=== PATIENT | female | born 1980 | race Caucasian/White ===

== ENCOUNTER 2022-09-18 23:31 | Inpatient (IN) | payer OTHER ==
[2022-09-18 23:39] LABS: Glucose,Whole Blood 349 mg/dL (70-110)
[2022-09-18] MEDS ORDERED: IBUPROFEN IV 800 MG in SODIUM CHLORIDE 0.9% 250 ML IV ONE (23:46)
[2022-09-18] MEDS ORDERED: SODIUM CHLORIDE 0.9% 1,000 ML IV STA ×2 (23:46)
[2022-09-18] MEDS ORDERED: ACETAMINOPHEN IV (For NPO) 1,000 MG in EMPTY BAG 1 BAG IVPB STA (23:46)
--- NOTE | 2022-09-18 23:47 | ED ---
Fever HPI - General Chief Complaint: Recheck/Abnormal Lab/Rx Stated Complaint: Hyperglycemia Time Seen by Provider: 09/18/22 23:35 Source: patient, RN notes reviewed, old records reviewed Mode of arrival: EMS Limitations: no limitations - History of Present Illness Initial Comments: This is a 41-year-old female to the emergency department for evaluation of overall not feeling well. Patient is sick with fever not feeling well decreased activity level. Decreased urine output. Severe barely elevated blood sugar patient believes she has fever. Patient does have history of diabetes MD Complaint: fever, malaise, weakness, other (Hypoglycemia) -: unknown Context: multiple patients with similar symptoms Associated Symptoms: chills, rigors, myalgias, abdominal pain, nausea, vomiting Treatments Prior to Arrival: none - Related Data Previous Rx's Medication Instructions Recorded Ciprofloxacin HCl [Cipro] 500 mg PO BID 10 Days #20 tab 09/22/22 Atorvastatin [Lipitor] 40 mg PO HS #30 tab 09/23/22 INSULIN ASPART (NovoLOG) [NovoLOG 4 unit SQ AC-TID #1 each 09/23/22 (formulary)] Insulin Detemir (Levemir) [Levemir] 12 unit SQ BID@0700,2100 #1 each 09/23/22 lisinopriL [Zestril] 2.5 mg PO DAILY #30 tab 09/23/22 metFORMIN HCL [Glucophage] 500 mg PO BID #60 tab 09/23/22 Allergies Allergy/AdvReac Type Severity Reaction Status Date / Time No Known Allergies Allergy Verified 09/19/22 11:00 Review of Systems ROS Statement: Those systems with pertinent positive or pertinent negative responses have been documented in the HPI. ROS Other: All systems not noted in ROS Statement are negative. Past Medical History Past Medical History: Diabetes Mellitus Additional Past Medical History / Comment(s): Type 2 History of Any Multi-Drug Resistant Organisms: None Reported Past Surgical History: No Surgical Hx Reported Past Psychological History: No Psychological Hx Reported Smoking Status: Current every day smoker Past Alcohol Use History: Occasional Past Drug Use History: None Reported General Exam Limitations: no limitations General appearance: alert, in no apparent distress, anxious, in distress Head exam: Present: atraumatic, normocephalic, normal inspection Eye exam: Present: normal appearance, PERRL, EOMI. Absent: scleral icterus, conjunctival injection, periorbital swelling ENT exam: Present: normal exam, mucous membranes moist Neck exam: Present: normal inspection. Absent: tenderness, meningismus, lymphadenopathy Respiratory exam: Present: normal lung sounds bilaterally. Absent: respiratory distress, wheezes, rales, rhonchi, stridor Cardiovascular Exam: Present: normal rhythm, tachycardia, normal heart sounds. Absent: systolic murmur, diastolic murmur, rubs, gallop, clicks GI/Abdominal exam: Present: soft, normal bowel sounds. Absent: distended, tenderness, guarding, rebound, rigid Extremities exam: Present: normal inspection, full ROM, normal capillary refill. Absent: tenderness, pedal edema, joint swelling, calf tenderness Back exam: Present: normal inspection Neurological exam: Present: alert, oriented X3, CN II-XII intact Psychiatric exam: Present: normal affect, normal mood Skin exam: Present: warm, dry, intact, normal color. Absent: rash Course Vital Signs 09/18/22 09/19/22 09/19/22 23:34 00:42 02:00 Temperature 99.8 F H 97.8 F Pulse Rate 103 H 103 H 91 Respiratory 16 18 16 Rate Blood Pressure 136/112 118/61 118/61 O2 Sat by Pulse 96 98 96 Oximetry 09/19/22 03:07 Temperature 97.9 F Pulse Rate 94 Respiratory 16 Rate Blood Pressure 118/61 O2 Sat by Pulse 96 Oximetry - Reevaluation(s) Reevaluation #1: Medical records reviewed Reevaluation #2: Patient symptoms are improved Reevaluation #3: Patient informed results questions answered Reevaluation #4: 09/19/22 01:04 Was pt. sent in by a medical professional or institution? @ -no Did you speak to anyone other than the patient for history? @ -no Did you review nursing and triage notes? @ -agree Were old charts reviewed? @ -yes Differential Diagnosis? @ -prior EKG interpreted by me (3pts min.)? @ -yes X-rays interpreted by me (1pt min.)? @ -yes CT interpreted by me (1pt min.)? @ -no U/S interpreted by me (1pt. min.)? @ -no What testing was considered but not performed? (CT, X-rays, U/S, labs)? Why? @ -no What meds were considered but not given? Why? @ -no Did you discuss the management of the patient with other professionals? @ -no Did you reconcile home meds? @ -no Was smoking cessation discussed for >3mins.? @ -no Was critical care preformed (if so, how long)? @ -no Were there social determinants of health that impacted care today? How? (Homelessness, low income, unemployed, alcoholism, drug addiction, transportation, low edu. Level, literacy, decrease access to med. care, half-way, rehab)? @ -no Was there de-escalation of care discussed even if they declined? (Discuss DNR or withdrawal of care, Hospice)? @ -no What co-morbidities impacted this encounter? (DM, HTN, Smoking, COPD, CAD, Cancer, CVA, Hep., AIDS, mental health diagnosis, sleep apnea, morbid obesity)? @ -none Was patient admitted / discharged? @ -89 female will be admitted for antibiotics breathing treatments regarding shortness of breath and difficulty breathing. Admitted Date Undiagnosed new problem with uncertain prognosis? @ -no Drug Therapy requiring intensive monitoring for toxicity (Heparin, Nitro, Insulin, Cardizem)? @ -no Were any procedures done? @ -no Diagnosis/symptom? @ -Fever UTI sepsis Acute, or Chronic, or Acute on Chronic? @ -acute Uncomplicated (without systemic symptoms) or Complicated (systemic symptoms)? @ -complicated Side effects of treatment? @ -no Exacerbation, Progression, or Severe Exacerbation] @ -no Poses a threat to life or bodily function? @ -yes with sepsis Reevaluation #5: 09/19/22 01:04 Differential Fever: Pneumonia, viral URI, endocarditis, myocarditis, pericarditis, otitis, sinusitis, peritonsillar Abscess, retropharyngeal Abscess, epiglottitis, peritonitis, appendicitis, Jovana cystitis, diverticulitis, hepatitis, colitis, UTI, PID, TOA, pyelonephritis, prostatitis, epididymitis, meningitis, encephalitis, pulmonary embolism, CVA, thyroid storm, pancreatitis, adrenal crisis, cavernous sinus thrombosis, this is not meant to be an all-inclusive list. - Consultations Consultation #1: Spoke with admitting physician surgery to admit this patient Procedures - Sepsis Sepsis Focused Exam #1 Time Sepsis Criteria Met: 23:55 Sepsis Focused Exam Date: 09/19/22 Sepsis Focused Exam Time: 06:00 Sepsis Focused Exam Complete: Yes Vital Signs & RN Notes Reviewed: Yes Capillary Refill: < 2 Seconds: Fingers, Toes Peripheral Pulses: Normal: Radial (R), Radial (L), Posterior Tibialis (R), Posterior Tibialis (L), Dorsalis Pedis (R), Dorsalis Pedis (L) Skin Color: Normal for Patient Respiratory Exam: normal lung sounds Cardiovascular Exam: regular rate Medical Decision Making - Lab Data Result diagrams: 09/23/22 06:25 09/23/22 06:25 Lab Results 09/18/22 09/18/22 09/18/22 Range/Units 23:37 23:40 23:40 WBC 16.6 H (3.8-10.6) k/uL RBC 4.99 (3.80-5.40) m/uL Hgb 14.4 (11.4-16.0) gm/dL Hct 44.1 (34.0-46.0) % MCV 88.4 (80.0-100.0) fL MCH 28.9 (25.0-35.0) pg MCHC 32.7 (31.0-37.0) g/dL RDW 12.8 (11.5-15.5) % Plt Count 292 (150-450) k/uL MPV 7.9 Neutrophils % 78 % Lymphocytes % 14 % Monocytes % 6 % Eosinophils % 1 % Basophils % 0 % Neutrophils # 12.9 H (1.3-7.7) k/uL Lymphocytes # 2.4 (1.0-4.8) k/uL Monocytes # 1.0 (0-1.0) k/uL Eosinophils # 0.2 (0-0.7) k/uL Basophils # 0.1 (0-0.2) k/uL PT 9.7 (9.0-12.0) sec INR 0.9 (<1.2) APTT 22.8 (22.0-30.0) sec Sodium (137-145) mmol/L Potassium (3.5-5.1) mmol/L Chloride (98-107) mmol/L Carbon Dioxide (22-30) mmol/L Anion Gap mmol/L BUN (7-17) mg/dL Creatinine (0.52-1.04) mg/dL Est GFR (CKD-EPI)AfAm (>60 ml/min/1.73 sqM) Est GFR (CKD-EPI)NonAf (>60 ml/min/1.73 sqM) Glucose (74-99) mg/dL POC Glucose (mg/dL) 349 H (70-110) mg/dL POC Glu [employer] Specialist ID Dean Malin Plasma Lactic Acid Dustin (0.7-2.0) mmol/L Calcium (8.4-10.2) mg/dL Phosphorus (2.5-4.5) mg/dL Magnesium (1.6-2.3) mg/dL Total Bilirubin (0.2-1.3) mg/dL AST (14-36) U/L ALT (4-34) U/L Alkaline Phosphatase (38-126) U/L Ammonia (<30) umol/L Troponin I (0.000-0.034) ng/mL NT-Pro-B Natriuret Pep pg/mL Total Protein (6.3-8.2) g/dL Albumin (3.5-5.0) g/dL Lipase (23-300) U/L TSH (0.465-4.680) mIU/L Serum Alcohol mg/dL Acetone, Qual (Negative) Coronavirus (PCR) (Not Detectd) 09/18/22 09/18/22 09/18/22 Range/Units 23:40 23:40 23:40 WBC (3.8-10.6) k/uL RBC (3.80-5.40) m/uL Hgb (11.4-16.0) gm/dL Hct (34.0-46.0) % MCV (80.0-100.0) fL MCH (25.0-35.0) pg MCHC (31.0-37.0) g/dL RDW (11.5-15.5) % Plt Count (150-450) k/uL MPV Neutrophils % % Lymphocytes % % Monocytes % % Eosinophils % % Basophils % % Neutrophils # (1.3-7.7) k/uL Lymphocytes # (1.0-4.8) k/uL Monocytes # (0-1.0) k/uL Eosinophils # (0-0.7) k/uL Basophils # (0-0.2) k/uL PT (9.0-12.0) sec INR (<1.2) APTT (22.0-30.0) sec Sodium 127 L (137-145) mmol/L Potassium 3.8 (3.5-5.1) mmol/L Chloride 96 L (98-107) mmol/L Carbon Dioxide 21 L (22-30) mmol/L Anion Gap 10 mmol/L BUN 7 (7-17) mg/dL Creatinine 0.38 L (0.52-1.04) mg/dL Est GFR (CKD-EPI)AfAm >90 (>60 ml/min/1.73 sqM) Est GFR (CKD-EPI)NonAf >90 (>60 ml/min/1.73 sqM) Glucose 355 H (74-99) mg/dL POC Glucose (mg/dL) (70-110) mg/dL POC Glu [employer] Specialist ID Plasma Lactic Acid Dustin 1.5 (0.7-2.0) mmol/L Calcium 8.6 (8.4-10.2) mg/dL Phosphorus 3.9 (2.5-4.5) mg/dL Magnesium 1.4 L (1.6-2.3) mg/dL Total Bilirubin 1.2 (0.2-1.3) mg/dL AST 28 (14-36) U/L ALT 29 (4-34) U/L Alkaline Phosphatase 87 (38-126) U/L Ammonia 10 (<30) umol/L Troponin I <0.012 (0.000-0.034) ng/mL NT-Pro-B Natriuret Pep pg/mL Total Protein 7.0 (6.3-8.2) g/dL Albumin 3.6 (3.5-5.0) g/dL Lipase 70 (23-300) U/L TSH 1.420 (0.465-4.680) mIU/L Serum Alcohol <10 mg/dL Acetone, Qual Negative (Negative) Coronavirus (PCR) (Not Detectd) 09/18/22 09/19/22 Range/Units 23:40 00:15 WBC (3.8-10.6) k/uL RBC (3.80-5.40) m/uL Hgb (11.4-16.0) gm/dL Hct (34.0-46.0) % MCV (80.0-100.0) fL MCH (25.0-35.0) pg MCHC (31.0-37.0) g/dL RDW (11.5-15.5) % Plt Count (150-450) k/uL MPV Neutrophils % % Lymphocytes % % Monocytes % % Eosinophils % % Basophils % % Neutrophils # (1.3-7.7) k/uL Lymphocytes # (1.0-4.8) k/uL Monocytes # (0-1.0) k/uL Eosinophils # (0-0.7) k/uL Basophils # (0-0.2) k/uL PT (9.0-12.0) sec INR (<1.2) APTT (22.0-30.0) sec Sodium (137-145) mmol/L Potassium (3.5-5.1) mmol/L Chloride (98-107) mmol/L Carbon Dioxide (22-30) mmol/L Anion Gap mmol/L BUN (7-17) mg/dL Creatinine (0.52-1.04) mg/dL Est GFR (CKD-EPI)AfAm (>60 ml/min/1.73 sqM) Est GFR (CKD-EPI)NonAf (>60 ml/min/1.73 sqM) Glucose (74-99) mg/dL POC Glucose (mg/dL) (70-110) mg/dL POC Glu [employer] Specialist ID Plasma Lactic Acid Dustin (0.7-2.0) mmol/L Calcium (8.4-10.2) mg/dL Phosphorus (2.5-4.5) mg/dL Magnesium (1.6-2.3) mg/dL Total Bilirubin (0.2-1.3) mg/dL AST (14-36) U/L ALT (4-34) U/L Alkaline Phosphatase (38-126) U/L Ammonia (<30) umol/L Troponin I (0.000-0.034) ng/mL NT-Pro-B Natriuret Pep 46 pg/mL Total Protein (6.3-8.2) g/dL Albumin (3.5-5.0) g/dL Lipase (23-300) U/L TSH (0.465-4.680) mIU/L Serum Alcohol mg/dL Acetone, Qual (Negative) Coronavirus (PCR) Not Detected (Not Detectd) - EKG Data -: EKG Interpreted by Me (EKG is sinus tachycardia 108 DE 140 QRS 88 QTc 416) Critical Care Time Critical Care Time: Yes Total Critical Care Time: 31 Disposition Clinical Impression: Fever, Hyperglycemia, Weakness, Pyelonephritis, UTI (urinary tract infection), Sepsis Disposition: ADMITTED IP TO THIS [facility] Condition: Serious Is patient prescribed a controlled substance at d/c from ED?: No Time of Disposition: 01:00
[2022-09-19 00:15] LABS: Basophils # (A) 0.1 k/uL (0-0.2); Basophils % (A) 0 %; Eosinophils # (A) 0.2 k/uL (0-0.7); Eosinophils % (A) 1 %; HCT 44.1 % (34.0-46.0); HGB 14.4 gm/dL (11.4-16.0); INR 0.9 (<1.2); Lymphocytes # (A) 2.4 k/uL (1.0-4.8); Lymphocytes % (A) 14 %; MCH 28.9 pg (25.0-35.0); MCHC 32.7 g/dL (31.0-37.0); MCV 88.4 fL (80.0-100.0); Mean Platelet Volume 7.9; Monocytes % (A) 6 %; Neutrophils # (A) 12.9 k/uL (1.3-7.7); Neutrophils % (A) 78 %; Partial Thromboplastin Time 22.8 sec (22.0-30.0); Platelet Count 292 k/uL (150-450); Prothrombin Time 9.7 sec (9.0-12.0); RBC 4.99 m/uL (3.80-5.40); RDW 12.8 % (11.5-15.5); WBC 16.6 k/uL (3.8-10.6)
[2022-09-19 00:22] LABS: Lactic Acid, Venous 1.5 mmol/L (0.7-2.0)
[2022-09-19 00:24] LABS: ALT 29 U/L (4-34); AST 28 U/L (14-36); African American GFR (CKD) >90 (>60 ml/min/1.73 sqM); Albumin 3.6 g/dL (3.5-5.0); Alcohol <10 mg/dL; Alkaline Phosphatase 87 U/L (38-126); Anion Gap 10 mmol/L; Blood Urea Nitrogen 7 mg/dL (7-17); Calcium 8.6 mg/dL (8.4-10.2); Carbon Dioxide 21 mmol/L (22-30); Chloride 96 mmol/L (98-107); Glucose 355 mg/dL (74-99); Lipase 70 U/L (23-300); Magnesium 1.4 mg/dL (1.6-2.3); Non-African American GFR(CKD) >90 (>60 ml/min/1.73 sqM); Phosphorus 3.9 mg/dL (2.5-4.5); Potassium 3.8 mmol/L (3.5-5.1); Sodium 127 mmol/L (137-145); Total Bilirubin 1.2 mg/dL (0.2-1.3)
[2022-09-19] MEDS ORDERED: NALOXONE 0.4 MG/ML 1 ML VIAL IV PRN (00:51)
[2022-09-19] MEDS ORDERED: ONDANSETRON 4 MG/2 ML VIAL IVP PRN (00:51)
--- NOTE | 2022-09-19 01:51 | XR ---
EXAM: XR Chest, 1 View CLINICAL HISTORY: ITS.REASON XR Reason: weak TECHNIQUE: Frontal view of the chest. COMPARISON: No relevant prior studies available. FINDINGS: Lungs: Hypoventilation with vascular crowding. Pulmonary vessels are top normal caliber. No definite focal pneumonia. Pleural space: No pleural effusion. No pneumothorax. Heart: Unremarkable. No cardiomegaly. Mediastinum: Unremarkable. Bones/joints: Unremarkable. IMPRESSION: Hypoventilation with vascular crowding. Pulmonary vessels are top normal caliber without definite CHF. No definite focal pneumonia
[2022-09-19 04:01] LABS: Glucose,Whole Blood 317 mg/dL (70-110)
[2022-09-19 04:28] LABS: Appearance,Urine Cloudy (Clear); Bacteria,Urine Occasional /hpf; Bilirubin,Urine Negative (Negative); Blood,Urine Trace (Negative); Color,Urine Light Yellow; Glucose,Urine (UA) 4+ (Negative); Ketones,Urine Negative (Negative); Leukocyte Esterase,Urine Large (Negative); Mucus,Urine Rare /hpf; Nitrite,Urine Negative (Negative); Protein,Urine Trace (Negative); RBC,Urine 3 /hpf (0-5); Specific Gravity,Urine 1.027 (1.001-1.035); Squamous Epithelial Cell,Urine 3 /hpf (0-4); Urobilinogen,Urine <2.0 mg/dL (<2.0); WBC,Urine 72 /hpf (0-5)
[2022-09-19] MEDS: SODIUM CHLORIDE 0.9% 1,000 ML IV SCH ×4 (05:57→21:22)
[2022-09-19 06:03] LABS: Glucose,Whole Blood 295 mg/dL (70-110)
[2022-09-19] MEDS: INSULIN ASPART (NovoLOG) 100 UNIT/ML VIAL SQ SCH ×4 (06:06→17:40)
[2022-09-19 07:05] LABS: Glucose,Whole Blood 295 mg/dL (70-110)
[2022-09-19] MEDS: ACETAMINOPHEN TAB 325 MG TAB PO PRN ×2 (09:42→15:27)
[2022-09-19 11:59] LABS: Glucose,Whole Blood 316 mg/dL (70-110)
[2022-09-19 14:26] VITALS: BMI 36.3
[2022-09-19] MEDS ORDERED: DEXTROSE 50% SYRINGE 50 ML IVP PRN ×2 (14:38)
--- NOTE | 2022-09-19 14:40 | P.HPIM ---
History of Present Illness H&P Date: 09/19/22 History of present illness; she is a 41-year-old lady with past medical history significant for diabetes mellitus who has not been taking her medication and does not follow with a primary doctor, currently visiting from [place] who presented to the ER because of overall feeling of being not well. Patient believes that she also has fever at home. Patient complaining of body aches and chills at home. Patient complaining of lethargy and weakness. Denies any shortness of breath. Denies any chest pain. Denies any orthopnea and PND. There is no complain of any swelling of feet. Patient states that she feels similar to what she felt like she was admitted last time with elevated blood sugar levels Because of this feeling of not feeling well, patient came to the ER Initial lab work done in the ER showed WBC 16.6, hemoglobin 14.4, platelet count 292, sodium 127, potassium 3.8, BUN 7, creatinine 0.38, magnesium 1.4 Chest x-ray done showed hypoventilation with vascular crowding, no pneumonia noticeable REVIEW OF SYSTEMS: CONSTITUTIONAL: As mentioned in HPI HEENT: No recent visual problems or hearing problems. Denied any sore throat. CARDIOVASCULAR: No chest pain, orthopnea, PND, no palpitations, no syncope. PULMONARY: No shortness of breath, no cough, no hemoptysis. GASTROINTESTINAL: No diarrhea, no nausea, no vomiting, no abdominal pain. NEUROLOGICAL: No headaches, no weakness, no numbness. HEMATOLOGICAL: Denies any bleeding or petechiae. GENITOURINARY: Denies any burning micturition, frequency, or urgency. MUSCULOSKELETAL/RHEUMATOLOGICAL: Denies any joint pain, swelling, or any muscle pain. ENDOCRINE: Denies any polyuria or polydipsia. The rest of the 14-point review of systems is negative. PHYSICAL EXAMINATION: GENERAL: The patient is alert and oriented x3, not in any acute distress. Well developed, well nourished. HEENT: Pupils are round and equally reacting to light. EOMI. No scleral icterus. No conjunctival pallor. Normocephalic, atraumatic. No pharyngeal erythema. No thyromegaly. CARDIOVASCULAR: S1 and S2 present. No murmurs, rubs, or gallops. PULMONARY: Chest is clear to auscultation, no wheezing or crackles. ABDOMEN: Soft, nontender, nondistended, normoactive bowel sounds. No palpable organomegaly. MUSCULOSKELETAL: No joint swelling or deformity. EXTREMITIES: No cyanosis, clubbing, or pedal edema. NEUROLOGICAL: Gross neurological examination did not reveal any focal deficits. SKIN: No rashes. Assessment and plan UTI [id number] diabetes mellitus Hypomagnesemia Hyperglycemia Monitor vital signs Monitor CBC Check lipid panel Check HbA1c level Check CRP check ultrasound of Kidneys Follow-up on blood cultures Follow-up urine cultures Continue IV Rocephin Continue IV fluids Continue sliding scale insulin Consult ID DVT prophylaxis: Past Medical History Past Medical History: Diabetes Mellitus Additional Past Medical History / Comment(s): Type 2 History of Any Multi-Drug Resistant Organisms: None Reported Past Surgical History: No Surgical Hx Reported Past Anesthesia/Blood Transfusion Reactions: No Reported Reaction Past Psychological History: No Psychological Hx Reported Smoking Status: Current every day smoker Past Alcohol Use History: Occasional Past Drug Use History: None Reported Medications and Allergies Home Medications Medication Instructions Recorded Confirmed Type No Known Home Medications 09/19/22 09/19/22 History Allergies Allergy/AdvReac Type Severity Reaction Status Date / Time No Known Allergies Allergy Verified 09/19/22 11:00 Physical Exam Vitals: Vital Signs Temp Pulse Pulse Resp BP BP Pulse Ox 09/19/22 08:00 94 L 09/19/22 07:05 98.3 F 92 18 131/81 99 09/19/22 03:43 98.2 F 94 16 114/66 94 L 09/19/22 03:07 97.9 F 94 16 118/61 96 09/19/22 02:00 97.8 F 91 16 118/61 96 09/19/22 00:42 103 H 18 118/61 98 09/18/22 23:34 99.8 F H 103 H 16 136/112 96 Intake and Output 09/18/22 09/19/22 09/19/22 22:59 06:59 14:59 Output Total 800 Balance -800 Output: Urine 800 Other: Weight 90.265 kg Results CBC & Chem 7: 09/18/22 23:40 09/18/22 23:40 Labs: Abnormal Lab Results - Last 24 Hours (Table) 09/18/22 09/18/22 09/18/22 Range/Units 23:37 23:40 23:40 WBC 16.6 H (3.8-10.6) k/uL Neutrophils # 12.9 H (1.3-7.7) k/uL Sodium 127 L (137-145) mmol/L Chloride 96 L (98-107) mmol/L Carbon Dioxide 21 L (22-30) mmol/L Creatinine 0.38 L (0.52-1.04) mg/dL Glucose 355 H (74-99) mg/dL POC Glucose (mg/dL) 349 H (70-110) mg/dL Magnesium 1.4 L (1.6-2.3) mg/dL Urine Appearance (Clear) Urine Protein (Negative) Urine Glucose (UA) (Negative) Urine Blood (Negative) Ur Leukocyte Esterase (Negative) Urine WBC (0-5) /hpf Urine WBC Clumps (None) /hpf Urine Bacteria (None) /hpf Urine Mucus (None) /hpf 09/19/22 09/19/22 09/19/22 Range/Units 03:42 03:59 06:02 WBC (3.8-10.6) k/uL Neutrophils # (1.3-7.7) k/uL Sodium (137-145) mmol/L Chloride (98-107) mmol/L Carbon Dioxide (22-30) mmol/L Creatinine (0.52-1.04) mg/dL Glucose (74-99) mg/dL POC Glucose (mg/dL) 317 H 295 H (70-110) mg/dL Magnesium (1.6-2.3) mg/dL Urine Appearance Cloudy H (Clear) Urine Protein Trace H (Negative) Urine Glucose (UA) 4+ H (Negative) Urine Blood Trace H (Negative) Ur Leukocyte Esterase Large H (Negative) Urine WBC 72 H (0-5) /hpf Urine WBC Clumps Few H (None) /hpf Urine Bacteria Occasional H (None) /hpf Urine Mucus Rare H (None) /hpf 09/19/22 Range/Units 07:03 WBC (3.8-10.6) k/uL Neutrophils # (1.3-7.7) k/uL Sodium (137-145) mmol/L Chloride (98-107) mmol/L Carbon Dioxide (22-30) mmol/L Creatinine (0.52-1.04) mg/dL Glucose (74-99) mg/dL POC Glucose (mg/dL) 295 H (70-110) mg/dL Magnesium (1.6-2.3) mg/dL Urine Appearance (Clear) Urine Protein (Negative) Urine Glucose (UA) (Negative) Urine Blood (Negative) Ur Leukocyte Esterase (Negative) Urine WBC (0-5) /hpf Urine WBC Clumps (None) /hpf Urine Bacteria (None) /hpf Urine Mucus (None) /hpf Thrombosis Risk Factor Assmnt - Choose All That Apply Any of the Below Risk Factors Present?: Yes Each Factor Represents 1 point: Age 41-60 years Other Risk Factors: No Other congenital or acquired thrombophilia - If yes, enter type in comment: No Thrombosis Risk Factor Assessment Total Risk Factor Score: 1 Thrombosis Risk Factor Assessment Level: Low Risk
[2022-09-19 17:28] LABS: Glucose,Whole Blood 384 mg/dL (70-110)
--- NOTE | 2022-09-19 18:20 | US ---
EXAMINATION TYPE: US kidneys/renal and bladder DATE OF EXAM: 09/19/2022 COMPARISON: NONE CLINICAL INDICATION: Female, 41 years old with history of Ariella; ARIELLA limited due to bowel gas and body habitus. EXAM MEASUREMENTS: Right Kidney: 14.1 x 6.8 x 5.9 cm Left Kidney: 11.9 x 5.6 x 6.3 cm Right Kidney: No hydronephrosis or masses seen Left Kidney:Small amount of fluid seen mid pole. Bladder: anechoic Bilateral Jets seen: yes IMPRESSION: 1. Renal ultrasound appears unremarkable as visualized.
[2022-09-19] MEDS: IBUPROFEN 400 MG TAB PO PRN (19:33)
[2022-09-19] MEDS: MORPHINE SULFATE 4 MG/ML SYRINGE IV PRN (20:25)
[2022-09-19 20:35] LABS: Glucose,Whole Blood 387 mg/dL (70-110)
[2022-09-19] MEDS ORDERED: INSULIN DETEMIR (LEVEMIR) 100 UNIT/ML SYR SQ SCH ×2 (21:00)
[2022-09-19] MEDS: INSULIN DETEMIR (LEVEMIR) 100 UNIT/ML SYR SQ SCH (21:22)
--- NOTE | 2022-09-19 22:52 | P.CONS ---
History of Present Illness - Reason for Consult Consult date: 09/19/22 UTI complicated Requesting physician: Willie Wilkerson - Chief Complaint Weakness and fever x few days - History of Present Illness Patient is a 41-year-old female with a past medical history pertinent for diabetes mellitus noncompliant with her medication currently visiting from [place] presenting to the ER because of overall not feeling well and did have elevated blood sugar and possibly fever at home patient said he is going on for the last day or 2 patient denies any headache or URI symptoms no chest pain or shortness with occasional cough some nausea but no vomiting no abdominal pain no diarrhea did have some urinary burning and frequency but no hematuria patient presented to the hospital have a low-grade fever of 99.8 and she did have a fever of 102.6 F this morning patient was tachycardic however not hypotensive or hypoxic and no need for supplemental oxygen patient did have a white count of 16.6 with a left shift creatinine has been normal liver enzymes are normal patient did have a positive UA chest x-ray no definitive focal pneumonia patient was started on Rocephin infectious disease was consulted for further management of antibiotic therapy Review of Systems Positive point and negatives has been mentioned in the HPI, complete review of systems was performed and all other systems are negative Past Medical History Past Medical History: Diabetes Mellitus Additional Past Medical History / Comment(s): Type 2 History of Any Multi-Drug Resistant Organisms: None Reported Past Surgical History: No Surgical Hx Reported Past Anesthesia/Blood Transfusion Reactions: No Reported Reaction Past Psychological History: No Psychological Hx Reported Smoking Status: Current every day smoker Past Alcohol Use History: Occasional Past Drug Use History: None Reported Medications and Allergies Home Medications Medication Instructions Recorded Confirmed Type Ciprofloxacin HCl [Cipro] 500 mg PO BID 10 Days #20 tab 09/22/22 Rx Atorvastatin [Lipitor] 40 mg PO HS #30 tab 09/23/22 Rx INSULIN ASPART (NovoLOG) [NovoLOG 4 unit SQ AC-TID #1 each 09/23/22 Rx (formulary)] Insulin Detemir (Levemir) [Levemir] 12 unit SQ BID@0700,2100 #1 each 09/23/22 Rx lisinopriL [Zestril] 2.5 mg PO DAILY #30 tab 09/23/22 Rx metFORMIN HCL [Glucophage] 500 mg PO BID #60 tab 09/23/22 Rx Allergies Allergy/AdvReac Type Severity Reaction Status Date / Time No Known Allergies Allergy Verified 09/19/22 11:00 Physical Exam Vitals: Vital Signs Temp Pulse Pulse Resp BP BP Pulse Ox 09/19/22 10:34 102.6 F H 09/19/22 08:00 94 L 09/19/22 07:05 98.3 F 92 18 131/81 99 09/19/22 03:43 98.2 F 94 16 114/66 94 L 09/19/22 03:07 97.9 F 94 16 118/61 96 09/19/22 02:00 97.8 F 91 16 118/61 96 09/19/22 00:42 103 H 18 118/61 98 09/18/22 23:34 99.8 F H 103 H 16 136/112 96 Intake and Output 09/18/22 09/19/22 09/19/22 22:59 06:59 14:59 Output Total 800 Balance -800 Output: Urine 800 Other: Weight 90.265 kg GENERAL DESCRIPTION: Middle-aged female lying in bed, no distress. No tachypnea or accessory muscle of respiration use. HEENT: Shows Pallor , no scleral icterus. Oral mucous membrane is dry. No pharyngeal erythema or thrush NECK: Trachea central, no thyromegaly. LUNGS: Unlabored breathing. Clear to auscultation anteriorly. No wheeze or crackle. HEART: S1, S2, regular rate and rhythm. No loud murmur ABDOMEN: Soft, no tenderness , guarding or rigidity, no organomegaly EXTREMITIES: No edema of feet. SKIN: No rash, no masses palpable. NEUROLOGICAL: The patient is awake, alert, oriented x3, mood and affect normal. Results CBC & Chem 7: 09/23/22 06:25 09/23/22 06:25 Labs: Abnormal Lab Results - Last 24 Hours (Table) 09/18/22 09/18/22 09/18/22 Range/Units 23:37 23:40 23:40 WBC 16.6 H (3.8-10.6) k/uL Neutrophils # 12.9 H (1.3-7.7) k/uL Sodium 127 L (137-145) mmol/L Chloride 96 L (98-107) mmol/L Carbon Dioxide 21 L (22-30) mmol/L Creatinine 0.38 L (0.52-1.04) mg/dL Glucose 355 H (74-99) mg/dL POC Glucose (mg/dL) 349 H (70-110) mg/dL Magnesium 1.4 L (1.6-2.3) mg/dL C-Reactive Protein (<1.0) mg/dL Urine Appearance (Clear) Urine Protein (Negative) Urine Glucose (UA) (Negative) Urine Blood (Negative) Ur Leukocyte Esterase (Negative) Urine WBC (0-5) /hpf Urine WBC Clumps (None) /hpf Urine Bacteria (None) /hpf Urine Mucus (None) /hpf 09/19/22 09/19/22 09/19/22 Range/Units 03:42 03:59 06:02 WBC (3.8-10.6) k/uL Neutrophils # (1.3-7.7) k/uL Sodium (137-145) mmol/L Chloride (98-107) mmol/L Carbon Dioxide (22-30) mmol/L Creatinine (0.52-1.04) mg/dL Glucose (74-99) mg/dL POC Glucose (mg/dL) 317 H 295 H (70-110) mg/dL Magnesium (1.6-2.3) mg/dL C-Reactive Protein (<1.0) mg/dL Urine Appearance Cloudy H (Clear) Urine Protein Trace H (Negative) Urine Glucose (UA) 4+ H (Negative) Urine Blood Trace H (Negative) Ur Leukocyte Esterase Large H (Negative) Urine WBC 72 H (0-5) /hpf Urine WBC Clumps Few H (None) /hpf Urine Bacteria Occasional H (None) /hpf Urine Mucus Rare H (None) /hpf 09/19/22 09/19/22 09/19/22 Range/Units 07:03 09:48 11:57 WBC (3.8-10.6) k/uL Neutrophils # (1.3-7.7) k/uL Sodium (137-145) mmol/L Chloride (98-107) mmol/L Carbon Dioxide (22-30) mmol/L Creatinine (0.52-1.04) mg/dL Glucose (74-99) mg/dL POC Glucose (mg/dL) 295 H 316 H (70-110) mg/dL Magnesium (1.6-2.3) mg/dL C-Reactive Protein 6.1 H (<1.0) mg/dL Urine Appearance (Clear) Urine Protein (Negative) Urine Glucose (UA) (Negative) Urine Blood (Negative) Ur Leukocyte Esterase (Negative) Urine WBC (0-5) /hpf Urine WBC Clumps (None) /hpf Urine Bacteria (None) /hpf Urine Mucus (None) /hpf Assessment and Plan (1) Pyelonephritis Status: Acute Code(s): N12 - TUBULO-INTERSTITIAL NEPHRITIS, NOT SPCF ACUTE OR CHRONIC SNOMED Code(s): 17646474 Plan: 1patient presented to hospital with sepsis in this patient who did have a fever elevated white count positive UA urinary symptoms considered likely pyelonephritis likely from metallic gram-negative pathogen currently no other obvious focus of infection in this patient chest x-ray reported negative abdominal soft on clinical examination 2-obtain ultrasound of the kidney bladder to make sure no evidence of any abscess or hydronephrosis 3-Rocephin 2 g IV to continue 4 gentle IV fluid We will follow on clinical condition and cultures to further adjust medication if needed Thank you for this consultation we will follow the patient along with you- Time with Patient: Greater than 30
[2022-09-19 23:30] LABS: Chol/HDL Ratio 3.52 Ratio; LDL Cholesterol,Calculated 99.8 mg/dL (0.0-131.0)
[2022-09-20] MEDS: ACETAMINOPHEN TAB 325 MG TAB PO PRN ×2 (03:59→16:48)
[2022-09-20] MEDS: SODIUM CHLORIDE 0.9% 1,000 ML IV SCH ×3 (05:45→21:55)
[2022-09-20 07:20] LABS: Glucose,Whole Blood 276 mg/dL (70-110)
[2022-09-20] MEDS: INSULIN ASPART (NovoLOG) 100 UNIT/ML VIAL SQ SCH ×6 (08:08→18:07)
[2022-09-20 09:27] LABS: Basophils # (A) 0.09 X 10*3/uL (0.00-0.10); Basophils % (A) 0.6 %; Eosinophils # (A) 0.07 X 10*3/uL (0.04-0.35); Eosinophils % (A) 0.5 %; HCT 40.2 % (37.2-46.3); HGB 13.2 d/dL (12.0-15.0); Lymphocytes # (A) 1.44 X 10*3/uL (0.90-5.00); Lymphocytes % (A) 10.3 %; MCH 29.1 pg (27.0-32.0); MCHC 32.8 d/dL (32.0-37.0); MCV 88.5 FL (80.0-97.0); Mean Platelet Volume 10.1 FL (9.5-12.2); Monocytes # (A) 1.26 X 10*3/uL (0.20-1.00); NRBC Per 100 WBC 0 X 10*3/uL (0.00-0.01); Neutrophils # (A) 11.03 X 10*3/uL (1.80-7.70); Neutrophils % (A) 79.2 %; Platelet Count 267 X 10*3/uL (140-440); RBC 4.54 X 10*6/uL (4.10-5.20); RDW 12.2 % (11.5-14.5); WBC 13.95 X 10*3/uL (4.50-10.00)
[2022-09-20] MEDS: IBUPROFEN 400 MG TAB PO PRN ×2 (09:48→20:24)
[2022-09-20 10:17] LABS: ALT 53 U/L (8-44); AST 50 U/L (13-35); Albumin 3.1 d/dL (3.8-4.9); Albumin/Globulin Ratio 1.07 Ratio (1.60-3.17); Alkaline Phosphatase 89 U/L (41-126); Blood Urea Nitrogen 5.7 mg/dL (9.0-27.0); Calcium 8.4 mg/dL (8.7-10.3); Carbon Dioxide 20.5 mmol/L (21.6-31.8); Chloride 102 mmol/L (96-109); Globulin 2.9 d/dL (1.6-3.3); Glucose 274 mg/dL (70-110); Magnesium 1.8 mg/dL (1.5-2.4); Phosphorus 2.4 mg/dL (2.4-5.1); Potassium 4.2 mmol/L (3.5-5.5); Sodium 134 mmol/L (135-145); Total Bilirubin 0.5 mg/dL (0.3-1.2)
[2022-09-20] MEDS: MORPHINE SULFATE 4 MG/ML SYRINGE IV PRN ×2 (10:55→21:53)
[2022-09-20 11:57] LABS: Glucose,Whole Blood 284 mg/dL (70-110)
--- NOTE | 2022-09-20 13:04 | P.PN ---
Subjective Progress Note Date: 09/20/22 she is a 41-year-old lady with past medical history significant for diabetes mellitus who has not been taking her medication and does not follow with a primary doctor, currently visiting from [place] who presented to the ER because of overall feeling of being not well. Patient believes that she also has fever at home. Patient complaining of body aches and chills at home. Patient complaining of lethargy and weakness. Denies any shortness of breath. Denies any chest pain. Denies any orthopnea and PND. There is no complain of any swelling of feet. Patient states that she feels similar to what she felt like she was admitted last time with elevated blood sugar levels Because of this feeling of not feeling well, patient came to the ER Initial lab work done in the ER showed WBC 16.6, hemoglobin 14.4, platelet count 292, sodium 127, potassium 3.8, BUN 7, creatinine 0.38, magnesium 1.4 Chest x-ray done showed hypoventilation with vascular crowding, no pneumonia noticeable 09/20. Patient seen and examined. Complaining of left-sided upper quadrant abdominal pain. Denies any nausea or vomiting REVIEW OF SYSTEMS: CONSTITUTIONAL: No fever, no malaise,. CARDIOVASCULAR: No chest pain, no palpitations, no syncope. PULMONARY: No shortness of breath, no cough, GASTROINTESTINAL: No diarrhea NEUROLOGICAL: No headaches, no weakness, PHYSICAL EXAMINATION: GENERAL: The patient is alert and oriented x3, not in any acute distress. Well developed, well nourished. HEENT: Pupils are round and equally reacting to light. EOMI. No scleral icterus. No conjunctival pallor. Normocephalic, atraumatic. No pharyngeal erythema. No thyromegaly. CARDIOVASCULAR: S1 and S2 present. No murmurs, rubs, or gallops. PULMONARY: Chest is clear to auscultation, no wheezing or crackles. ABDOMEN: Soft, nontender, nondistended, normoactive bowel sounds. No palpable organomegaly. MUSCULOSKELETAL: No joint swelling or deformity. EXTREMITIES: No cyanosis, clubbing, or pedal edema. NEUROLOGICAL: Gross neurological examination did not reveal any focal deficits. SKIN: No rashes. Assessment and plan UTI [id number] diabetes mellitus, "poorly controlled, HbA1c level of 12.2 Hypomagnesemia Hyperglycemia Monitor vital signs Monitor CBC Monitor CMP Continue telemetry monitoring Monitor blood sugar levels. Continue Lantus 15 units at night, continue NovoLog 5 units with meals in addition to sliding scale Follow-up on blood cultures Continue IV Rocephin Follow-up in ID recs DVT prophylaxis: Objective - Vital Signs Vital signs: Vital Signs Temp 98.8 F 09/20/22 07:19 Pulse 96 09/20/22 07:19 Resp 18 09/20/22 07:19 BP 138/85 09/20/22 07:19 Pulse Ox 97 09/20/22 07:20 FiO2 Intake & Output 09/19/22 09/20/22 09/20/22 18:59 06:59 18:59 Weight 90.265 kg Other: # Voids 5 1 - Labs CBC & Chem 7: 09/20/22 05:51 09/20/22 05:51 Labs: Abnormal Lab Results - Last 24 Hours (Table) 09/19/22 09/19/22 09/19/22 Range/Units 09:48 09:48 09:48 WBC (4.50-10.00) X 10*3/uL Neutrophils # (1.80-7.70) X 10*3/uL Monocytes # (0.20-1.00) X 10*3/uL Sodium (135-145) mmol/L Carbon Dioxide (21.6-31.8) mmol/L BUN (9.0-27.0) mg/dL Creatinine (0.6-1.5) mg/dL BUN/Creatinine Ratio (12.00-20.00) Ratio Glucose (70-110) mg/dL POC Glucose (mg/dL) (70-110) mg/dL Hemoglobin A1c 12.2 H (<=6.0) % Calcium (8.7-10.3) mg/dL AST (13-35) U/L ALT (8-44) U/L C-Reactive Protein 6.1 H (<1.0) mg/dL Total Protein (6.2-8.2) d/dL Albumin (3.8-4.9) d/dL Albumin/Globulin Ratio (1.60-3.17) Ratio Procalcitonin 0.45 H (0.02-0.09) ng/mL 09/19/22 09/19/22 09/19/22 Range/Units 11:57 17:26 20:32 WBC (4.50-10.00) X 10*3/uL Neutrophils # (1.80-7.70) X 10*3/uL Monocytes # (0.20-1.00) X 10*3/uL Sodium (135-145) mmol/L Carbon Dioxide (21.6-31.8) mmol/L BUN (9.0-27.0) mg/dL Creatinine (0.6-1.5) mg/dL BUN/Creatinine Ratio (12.00-20.00) Ratio Glucose (70-110) mg/dL POC Glucose (mg/dL) 316 H 384 H 387 H (70-110) mg/dL Hemoglobin A1c (<=6.0) % Calcium (8.7-10.3) mg/dL AST (13-35) U/L ALT (8-44) U/L C-Reactive Protein (<1.0) mg/dL Total Protein (6.2-8.2) d/dL Albumin (3.8-4.9) d/dL Albumin/Globulin Ratio (1.60-3.17) Ratio Procalcitonin (0.02-0.09) ng/mL 09/20/22 09/20/22 09/20/22 Range/Units 05:51 05:51 07:18 WBC 13.95 H (4.50-10.00) X 10*3/uL Neutrophils # 11.03 H (1.80-7.70) X 10*3/uL Monocytes # 1.26 H (0.20-1.00) X 10*3/uL Sodium 134 L (135-145) mmol/L Carbon Dioxide 20.5 L (21.6-31.8) mmol/L BUN 5.7 L (9.0-27.0) mg/dL Creatinine 0.5 L (0.6-1.5) mg/dL BUN/Creatinine Ratio 11.40 L (12.00-20.00) Ratio Glucose 274 H (70-110) mg/dL POC Glucose (mg/dL) 276 H (70-110) mg/dL Hemoglobin A1c (<=6.0) % Calcium 8.4 L (8.7-10.3) mg/dL AST 50 H (13-35) U/L ALT 53 H (8-44) U/L C-Reactive Protein (<1.0) mg/dL Total Protein 6.0 L (6.2-8.2) d/dL Albumin 3.1 L (3.8-4.9) d/dL Albumin/Globulin Ratio 1.07 L (1.60-3.17) Ratio Procalcitonin (0.02-0.09) ng/mL
[2022-09-20 17:16] LABS: Glucose,Whole Blood 271 mg/dL (70-110)
--- NOTE | 2022-09-20 17:40 | P.PN ---
Subjective Progress Note Date: 09/20/22 Principal diagnosis: E coli UTI and bacteremia Patient is a 41-year-old female with a past medical history pertinent for diabetes mellitus noncompliant with her medication currently visiting from [place] presenting to the ER because of overall not feeling well and did have elevated blood sugar and possibly fever at home, patient was noticed to be febrile positivity with concern for pyelonephritis and blood cultures came back positive for E. coli. On today's evaluation that is 09/20/2022, the patient fever pattern has improved and is afebrile this afternoon patient is feeling slightly better. Denies having any chest pain shortness of breath or cough no nausea no vomiting abdominal pain or diarrhea Objective - Vital Signs Vital signs: Vital Signs Temp 98.2 F 09/20/22 13:39 Pulse 101 H 09/20/22 13:39 Resp 16 09/20/22 13:39 BP 128/80 09/20/22 13:39 Pulse Ox 99 09/20/22 13:39 FiO2 Intake & Output 09/19/22 09/20/22 09/20/22 18:59 06:59 18:59 Weight 90.265 kg Other: # Voids 5 1 - Exam GENERAL DESCRIPTION: A middle-age female up in the chair in no distress RESPIRATORY SYSTEM: Unlabored breathing , decreased breath sounds at bases HEART: S1 S2 regular rate and rhythm , ABDOMEN: Soft , no tenderness EXTREMITIES: No edema feet - Labs CBC & Chem 7: 09/20/22 05:51 09/20/22 05:51 Labs: Abnormal Lab Results - Last 24 Hours (Table) 09/19/22 09/19/22 09/19/22 Range/Units 09:48 17:26 20:32 WBC (4.50-10.00) X 10*3/uL Neutrophils # (1.80-7.70) X 10*3/uL Monocytes # (0.20-1.00) X 10*3/uL Sodium (135-145) mmol/L Carbon Dioxide (21.6-31.8) mmol/L BUN (9.0-27.0) mg/dL Creatinine (0.6-1.5) mg/dL BUN/Creatinine Ratio (12.00-20.00) Ratio Glucose (70-110) mg/dL POC Glucose (mg/dL) 384 H 387 H (70-110) mg/dL Hemoglobin A1c (<=6.0) % Calcium (8.7-10.3) mg/dL AST (13-35) U/L ALT (8-44) U/L Total Protein (6.2-8.2) d/dL Albumin (3.8-4.9) d/dL Albumin/Globulin Ratio (1.60-3.17) Ratio Procalcitonin 0.45 H (0.02-0.09) ng/mL 09/20/22 09/20/22 09/20/22 Range/Units 05:51 05:51 05:51 WBC 13.95 H (4.50-10.00) X 10*3/uL Neutrophils # 11.03 H (1.80-7.70) X 10*3/uL Monocytes # 1.26 H (0.20-1.00) X 10*3/uL Sodium 134 L (135-145) mmol/L Carbon Dioxide 20.5 L (21.6-31.8) mmol/L BUN 5.7 L (9.0-27.0) mg/dL Creatinine 0.5 L (0.6-1.5) mg/dL BUN/Creatinine Ratio 11.40 L (12.00-20.00) Ratio Glucose 274 H (70-110) mg/dL POC Glucose (mg/dL) (70-110) mg/dL Hemoglobin A1c 12.3 H (<=6.0) % Calcium 8.4 L (8.7-10.3) mg/dL AST 50 H (13-35) U/L ALT 53 H (8-44) U/L Total Protein 6.0 L (6.2-8.2) d/dL Albumin 3.1 L (3.8-4.9) d/dL Albumin/Globulin Ratio 1.07 L (1.60-3.17) Ratio Procalcitonin (0.02-0.09) ng/mL 09/20/22 09/20/22 Range/Units 07:18 11:56 WBC (4.50-10.00) X 10*3/uL Neutrophils # (1.80-7.70) X 10*3/uL Monocytes # (0.20-1.00) X 10*3/uL Sodium (135-145) mmol/L Carbon Dioxide (21.6-31.8) mmol/L BUN (9.0-27.0) mg/dL Creatinine (0.6-1.5) mg/dL BUN/Creatinine Ratio (12.00-20.00) Ratio Glucose (70-110) mg/dL POC Glucose (mg/dL) 276 H 284 H (70-110) mg/dL Hemoglobin A1c (<=6.0) % Calcium (8.7-10.3) mg/dL AST (13-35) U/L ALT (8-44) U/L Total Protein (6.2-8.2) d/dL Albumin (3.8-4.9) d/dL Albumin/Globulin Ratio (1.60-3.17) Ratio Procalcitonin (0.02-0.09) ng/mL Microbiology - Last 24 Hours (Table) 09/19/22 00:47 Blood Culture Gram Stain - Preliminary Blood Blood Culture - Preliminary Gram Neg Bacilli 09/19/22 00:32 Blood Culture - Preliminary Blood Assessment and Plan (1) Pyelonephritis Current Visit: Yes Status: Acute Code(s): N12 - TUBULO-INTERSTITIAL NEPHRITIS, NOT SPCF ACUTE OR CHRONIC SNOMED Code(s): 97937486 (2) E coli bacteremia Current Visit: Yes Status: Acute Code(s): R78.81 - BACTEREMIA; B96.20 - UNSP ESCHERICHIA COLI THE CAUSE OF DISEASES CLASSD [facility] SNOMED Code(s): 189292802022 Plan: 1patient presented to hospital with sepsis in this patient who did have a fever elevated white count positive UA urinary symptoms considered likely pyelonephritis likely from metallic gram-negative pathogen currently no other obvious focus of infection in this patient chest x-ray reported negative abdominal soft on clinical examination 2-ultrasound of the kidney bladder did not show any evidence of any abscess or h ydronephrosis 3-patient did have a positive blood culture with E. coli likely secondary to prior pyelonephritis, patient to continue Rocephin 2 g IV hopefully finishing therapy with oral antibiotics Time with Patient: Less than 30
[2022-09-20 20:22] LABS: Glucose,Whole Blood 267 mg/dL (70-110)
[2022-09-20] MEDS: INSULIN DETEMIR (LEVEMIR) 100 UNIT/ML SYR SQ SCH (20:24)
[2022-09-21] MEDS: SODIUM CHLORIDE 0.9% 1,000 ML IV SCH ×3 (05:30→21:09)
[2022-09-21] MEDS: MORPHINE SULFATE 4 MG/ML SYRINGE IV PRN (06:03)
[2022-09-21 07:08] LABS: Glucose,Whole Blood 239 mg/dL (70-110)
[2022-09-21] MEDS: ACETAMINOPHEN TAB 325 MG TAB PO PRN ×2 (07:53→15:27)
[2022-09-21] MEDS: INSULIN ASPART (NovoLOG) 100 UNIT/ML VIAL SQ SCH ×6 (07:54→17:38)
[2022-09-21 12:02] LABS: Glucose,Whole Blood 321 mg/dL (70-110)
--- NOTE | 2022-09-21 13:11 | P.PN ---
Subjective Progress Note Date: 09/21/22 she is a 41-year-old lady with past medical history significant for diabetes mellitus who has not been taking her medication and does not follow with a primary doctor, currently visiting from [place] who presented to the ER because of overall feeling of being not well. Patient believes that she also has fever at home. Patient complaining of body aches and chills at home. Patient complaining of lethargy and weakness. Denies any shortness of breath. Denies any chest pain. Denies any orthopnea and PND. There is no complain of any swelling of feet. Patient states that she feels similar to what she felt like she was admitted last time with elevated blood sugar levels Because of this feeling of not feeling well, patient came to the ER Initial lab work done in the ER showed WBC 16.6, hemoglobin 14.4, platelet count 292, sodium 127, potassium 3.8, BUN 7, creatinine 0.38, magnesium 1.4 Chest x-ray done showed hypoventilation with vascular crowding, no pneumonia noticeable 7/2. Patient seen and examined. Complaining of left-sided upper quadrant abdominal pain. Denies any nausea or vomiting 7/3. Patient seen and examined. Blood cultures are positive for gram-negative bacilli. Blood sugars are still running in high 200s, adjust Lantus to 12 units twice a day and NovoLog to 8 units with meals. Patient fevers overnight REVIEW OF SYSTEMS: CONSTITUTIONAL: Had fevers overnight CARDIOVASCULAR: No chest pain, no palpitations, no syncope. PULMONARY: No shortness of breath, no cough, GASTROINTESTINAL: No diarrhea NEUROLOGICAL: No headaches, no weakness, PHYSICAL EXAMINATION: GENERAL: The patient is alert and oriented x3, not in any acute distress. Well developed, well nourished. HEENT: Pupils are round and equally reacting to light. EOMI. No scleral icterus. No conjunctival pallor. Normocephalic, atraumatic. No pharyngeal erythema. No thyromegaly. CARDIOVASCULAR: S1 and S2 present. No murmurs, rubs, or gallops. PULMONARY: Chest is clear to auscultation, no wheezing or crackles. ABDOMEN: Soft, nontender, nondistended, normoactive bowel sounds. No palpable organomegaly. MUSCULOSKELETAL: No joint swelling or deformity. EXTREMITIES: No cyanosis, clubbing, or pedal edema. NEUROLOGICAL: Gross neurological examination did not reveal any focal deficits. SKIN: No rashes. Assessment and plan Acute pyelonephritis Sepsis Bacteremia [id number] diabetes mellitus, "poorly controlled, HbA1c level of 12.2 Hypomagnesemia Hyperglycemia Monitor vital signs Monitor CBC Monitor CMP Blood cultures are growing gram-negative bacilli Monitor blood sugar levels. adjust Lantus to 12 units twice a day and NovoLog to 8 units with meals in addition to sliding scale Follow-up on blood cultures Continue IV Rocephin Follow-up in ID recs DVT prophylaxis: Objective - Vital Signs Vital signs: Vital Signs Temp 99.4 F 09/21/22 07:08 Pulse 105 H 09/21/22 07:08 Resp 18 09/21/22 07:08 BP 144/84 09/21/22 07:08 Pulse Ox 92 L 09/21/22 07:56 FiO2 Intake & Output 09/20/22 09/21/22 09/21/22 18:59 06:59 18:59 Intake Total 590 Balance 590 Intake: Oral 590 Other: Voiding Method Toilet Toilet # Voids 5 2 - Labs CBC & Chem 7: 09/20/22 05:51 09/20/22 05:51 Labs: Abnormal Lab Results - Last 24 Hours (Table) 09/20/22 09/20/22 09/20/22 Range/Units 05:51 11:56 17:15 POC Glucose (mg/dL) 284 H 271 H (70-110) mg/dL Hemoglobin A1c 12.3 H (<=6.0) % 09/20/22 09/21/22 Range/Units 20:20 07:07 POC Glucose (mg/dL) 267 H 239 H (70-110) mg/dL Hemoglobin A1c (<=6.0) % Microbiology - Last 24 Hours (Table) 09/19/22 00:47 Blood Culture Gram Stain - Preliminary Blood Blood Culture - Preliminary Gram Neg Bacilli 09/19/22 00:32 Blood Culture - Preliminary Blood
[2022-09-21 17:14] LABS: Glucose,Whole Blood 207 mg/dL (70-110)
[2022-09-21 20:20] LABS: Glucose,Whole Blood 195 mg/dL (70-110)
[2022-09-21] MEDS: INSULIN DETEMIR (LEVEMIR) 100 UNIT/ML SYR SQ SCH (21:09)
[2022-09-21] MEDS: IBUPROFEN 400 MG TAB PO PRN (21:25)
[2022-09-22] MEDS: SODIUM CHLORIDE 0.9% 1,000 ML IV SCH ×2 (05:13→13:03)
[2022-09-22 07:29] LABS: Glucose,Whole Blood 293 mg/dL (70-110)
[2022-09-22] MEDS: INSULIN ASPART (NovoLOG) 100 UNIT/ML VIAL SQ SCH ×6 (08:32→17:35)
[2022-09-22] MEDS: INSULIN DETEMIR (LEVEMIR) 100 UNIT/ML SYR SQ SCH ×2 (08:32→20:57)
[2022-09-22 12:02] LABS: Basophils % (A) 1 %; Eosinophils # (A) 0.2 k/uL (0-0.7); Eosinophils % (A) 2 %; HCT 43.6 % (34.0-46.0); HGB 13.7 gm/dL (11.4-16.0); Hypochromasia Slight; Lymphocytes # (A) 1.6 k/uL (1.0-4.8); Lymphocytes % (A) 24 %; MCH 29.1 pg (25.0-35.0); MCHC 31.5 g/dL (31.0-37.0); MCV 92.4 fL (80.0-100.0); Mean Platelet Volume 8.1; Monocytes # (A) 0.7 k/uL (0-1.0); Monocytes % (A) 10 %; Neutrophils # (A) 4.1 k/uL (1.3-7.7); Neutrophils % (A) 60 %; Platelet Count 317 k/uL (150-450); RBC 4.72 m/uL (3.80-5.40); RDW 12.9 % (11.5-15.5); WBC 6.8 k/uL (3.8-10.6)
[2022-09-22 12:14] LABS: ALT 68 U/L (4-34); AST 48 U/L (14-36); African American GFR (CKD) >90 (>60 ml/min/1.73 sqM); Albumin 3.1 g/dL (3.5-5.0); Albumin/Globulin Ratio 0.9; Alkaline Phosphatase 121 U/L (38-126); Anion Gap 7 mmol/L; Blood Urea Nitrogen 6 mg/dL (7-17); Calcium 8.6 mg/dL (8.4-10.2); Carbon Dioxide 25 mmol/L (22-30); Chloride 102 mmol/L (98-107); Globulin 3.3 g/dL; Glucose 374 mg/dL (74-99); Non-African American GFR(CKD) >90 (>60 ml/min/1.73 sqM); Potassium 4.1 mmol/L (3.5-5.1); Sodium 134 mmol/L (137-145); Total Bilirubin 0.4 mg/dL (0.2-1.3); Total Protein 6.4 g/dL (6.3-8.2)
[2022-09-22 12:40] LABS: Glucose,Whole Blood 301 mg/dL (70-110)
--- NOTE | 2022-09-22 13:22 | P.PN ---
Subjective Progress Note Date: 09/22/22 she is a 41-year-old lady with past medical history significant for diabetes mellitus who has not been taking her medication and does not follow with a primary doctor, currently visiting from [place] who presented to the ER because of overall feeling of being not well. Patient believes that she also has fever at home. Patient complaining of body aches and chills at home. Patient complaining of lethargy and weakness. Denies any shortness of breath. Denies any chest pain. Denies any orthopnea and PND. There is no complain of any swelling of feet. Patient states that she feels similar to what she felt like she was admitted last time with elevated blood sugar levels Because of this feeling of not feeling well, patient came to the ER Initial lab work done in the ER showed WBC 16.6, hemoglobin 14.4, platelet count 292, sodium 127, potassium 3.8, BUN 7, creatinine 0.38, magnesium 1.4 Chest x-ray done showed hypoventilation with vascular crowding, no pneumonia noticeable /. Patient seen and examined. Complaining of left-sided upper quadrant abdominal pain. Denies any nausea or vomiting /. Patient seen and examined. Blood cultures are positive for gram-negative bacilli. Blood sugars are still running in high 200s, adjust Lantus to 12 units twice a day and NovoLog to 8 units with meals. Patient fevers overnight 09/22. Patient seen and examined. States she feels better. Fevers have improved. States back pain has improved. Discussed with her regarding starting her on statins for her hypercholesterolemia REVIEW OF SYSTEMS: CONSTITUTIONAL: Fevers improved CARDIOVASCULAR: No chest pain, no palpitations, no syncope. PULMONARY: No shortness of breath, no cough, GASTROINTESTINAL: No diarrhea NEUROLOGICAL: No headaches, no weakness, PHYSICAL EXAMINATION: GENERAL: The patient is alert and oriented x3, not in any acute distress. Well developed, well nourished. HEENT: Pupils are round and equally reacting to light. EOMI. No scleral icterus. No conjunctival pallor. Normocephalic, atraumatic. No pharyngeal erythema. No thyromegaly. CARDIOVASCULAR: S1 and S2 present. No murmurs, rubs, or gallops. PULMONARY: Chest is clear to auscultation, no wheezing or crackles. ABDOMEN: Soft, nontender, nondistended, normoactive bowel sounds. No palpable organomegaly. MUSCULOSKELETAL: No joint swelling or deformity. EXTREMITIES: No cyanosis, clubbing, or pedal edema. NEUROLOGICAL: Gross neurological examination did not reveal any focal deficits. SKIN: No rashes. Assessment and plan Acute pyelonephritis Sepsis Bacteremia [id number] diabetes mellitus, "poorly controlled, HbA1c level of 12.2 Hypomagnesemia Hyperglycemia Hyperlipidemia Monitor vital signs Monitor CBC Monitor CMP Blood cultures are growing gram-negative bacilli Monitor blood sugar levels. Continue Lantus to 12 units twice a day and NovoLog to 8 units with meals in addition to sliding scale Start Lipitor DC fluids Follow-up on blood cultures Continue IV Rocephin Follow-up in ID recs DVT prophylaxis: Objective - Vital Signs Vital signs: Vital Signs Temp 97.9 F 09/22/22 07:29 Pulse 89 09/22/22 07:29 Resp 16 09/22/22 07:29 BP 149/90 09/22/22 07:29 Pulse Ox 98 09/22/22 08:24 FiO2 Intake & Output 09/21/22 09/22/22 09/22/22 18:59 06:59 18:59 Intake Total 1560 2000 Balance 1560 1999 Intake: Intake, IV Titration 1560 1500 Amount Sodium Chloride 0.9% 1, 1560 1500 000 ml @ 130 mls/hr IV . [id number] [facility] Rx#:[id number] Oral 500 Other: Voiding Method Toilet Toilet Toilet # Voids 4 - Labs CBC & Chem 7: 09/22/22 11:33 09/22/22 11:33 Labs: Abnormal Lab Results - Last 24 Hours (Table) 09/21/22 09/21/22 09/21/22 Range/Units 12:01 17:12 20:14 POC Glucose (mg/dL) 321 H 207 H 195 H (70-110) mg/dL 09/22/22 Range/Units 07:28 POC Glucose (mg/dL) 293 H (70-110) mg/dL Microbiology - Last 24 Hours (Table) 09/19/22 00:47 Blood Culture Gram Stain - Final Blood Blood Culture - Final Escherichia coli 09/19/22 00:32 Blood Culture - Preliminary Blood
--- NOTE | 2022-09-22 15:16 | P.PN ---
Subjective Progress Note Date: 09/21/22 Principal diagnosis: E coli UTI and bacteremia Patient is a 41-year-old female with a past medical history pertinent for diabetes mellitus noncompliant with her medication currently visiting from [place] presenting to the ER because of overall not feeling well and did have elevated blood sugar and possibly fever at home, patient was noticed to be febrile positivity with concern for pyelonephritis and blood cultures came back positive for E. coli. On today's evaluation that is 09/21/2022, the patient fever has resolved and the patient is afebrile this morning, patient denies having any chest pain shortness of breath or cough no nausea no vomiting abdominal pain or diarrhea Objective - Vital Signs Vital signs: Vital Signs Temp 99.4 F 09/21/22 07:08 Pulse 105 H 09/21/22 07:08 Resp 18 09/21/22 07:08 BP 144/84 09/21/22 07:08 Pulse Ox 92 L 09/21/22 07:56 FiO2 Intake & Output 09/20/22 09/21/22 09/21/22 18:59 06:59 18:59 Intake Total 590 Balance 590 Intake: Oral 590 Other: Voiding Method Toilet Toilet # Voids 5 2 - Exam GENERAL DESCRIPTION: A middle-age female up in the chair in no distress RESPIRATORY SYSTEM: Unlabored breathing , decreased breath sounds at bases HEART: S1 S2 regular rate and rhythm , ABDOMEN: Soft , no tenderness EXTREMITIES: No edema feet - Labs CBC & Chem 7: 09/22/22 11:33 09/22/22 11:33 Labs: Abnormal Lab Results - Last 24 Hours (Table) 09/20/22 09/20/22 09/21/22 Range/Units 17:15 20:20 07:07 POC Glucose (mg/dL) 271 H 267 H 239 H (70-110) mg/dL 09/21/22 Range/Units 12:01 POC Glucose (mg/dL) 321 H (70-110) mg/dL Microbiology - Last 24 Hours (Table) 09/19/22 00:47 Blood Culture Gram Stain - Preliminary Blood Blood Culture - Preliminary Gram Neg Bacilli 09/19/22 00:32 Blood Culture - Preliminary Blood Assessment and Plan (1) Pyelonephritis Current Visit: Yes Status: Acute Code(s): N12 - TUBULO-INTERSTITIAL NEPHRITIS, NOT SPCF ACUTE OR CHRONIC SNOMED Code(s): 93157967 (2) E coli bacteremia Current Visit: Yes Status: Acute Code(s): R78.81 - BACTEREMIA; B96.20 - UNSP ESCHERICHIA COLI THE CAUSE OF DISEASES CLASSD [facility] SNOMED Code(s): 265884783597 Plan: 1patient presented to hospital with sepsis in this patient who did have a fever elevated white count positive UA urinary symptoms considered likely pyelonephrit is likely from metallic gram-negative pathogen currently no other obvious focus of infection in this patient chest x-ray reported negative abdominal soft on clinical examination 2-ultrasound of the kidney bladder did not show any evidence of any abscess or hydronephrosis 3-patient did have a positive blood culture with E. coli likely secondary to prior pyelonephritis, 4- patient to continue Rocephin 2 g IV and plan is to finish therapy with oral antibiotics Time with Patient: Less than 30
--- NOTE | 2022-09-22 15:17 | P.PN ---
Subjective Progress Note Date: 09/22/22 Principal diagnosis: E coli UTI and bacteremia Patient is a 41-year-old female with a past medical history pertinent for diabetes mellitus noncompliant with her medication currently visiting from [place] presenting to the ER because of overall not feeling well and did have elevated blood sugar and possibly fever at home, patient was noticed to be febrile positivity with concern for pyelonephritis and blood cultures came back positive for E. coli. On today's evaluation that is 09/22/2022, the patient did have a low-grade fever 100.3 yesterday afternoon however the patient is afebrile since then, patient denies having any chest pain shortness of breath or cough no nausea no vomiting abdominal pain or diarrhea Objective - Vital Signs Vital signs: Vital Signs Temp 98.3 F 09/22/22 11:26 Pulse 84 09/22/22 11:26 Resp 16 09/22/22 11:26 BP 166/94 09/22/22 11:26 Pulse Ox 97 09/22/22 11:26 FiO2 Intake & Output 09/21/22 09/22/22 09/22/22 18:59 06:59 18:59 Intake Total 1560 1999 Balance 1560 1999 Intake: Intake, IV Titration 1560 1500 Amount Sodium Chloride 0.9% 1, 1560 1500 000 ml @ 130 mls/hr IV . Q7H42M [facility] Rx#:[id number] Oral 500 Other: Voiding Method Toilet Toilet Toilet # Voids 4 - Exam GENERAL DESCRIPTION: A middle-age female up in the chair in no distress RESPIRATORY SYSTEM: Unlabored breathing , decreased breath sounds at bases HEART: S1 S2 regular rate and rhythm , ABDOMEN: Soft , no tenderness EXTREMITIES: No edema feet - Labs CBC & Chem 7: 09/22/22 11:33 09/22/22 11:33 Labs: Abnormal Lab Results - Last 24 Hours (Table) 09/21/22 09/21/22 09/22/22 Range/Units 17:12 20:14 07:28 Sodium (137-145) mmol/L BUN (7-17) mg/dL Creatinine (0.52-1.04) mg/dL Glucose (74-99) mg/dL POC Glucose (mg/dL) 207 H 195 H 293 H (70-110) mg/dL AST (14-36) U/L ALT (4-34) U/L Albumin (3.5-5.0) g/dL 09/22/22 09/22/22 Range/Units 11:33 12:39 Sodium 134 L (137-145) mmol/L BUN 6 L (7-17) mg/dL Creatinine 0.32 L (0.52-1.04) mg/dL Glucose 374 H (74-99) mg/dL POC Glucose (mg/dL) 301 H (70-110) mg/dL AST 48 H (14-36) U/L ALT 68 H (4-34) U/L Albumin 3.1 L (3.5-5.0) g/dL Microbiology - Last 24 Hours (Table) 09/19/22 00:32 Blood Culture - Preliminary Blood 09/19/22 00:47 Blood Culture Gram Stain - Final Blood Blood Culture - Final Escherichia coli Assessment and Plan (1) Pyelonephritis Current Visit: Yes Status: Acute Code(s): N12 - TUBULO-INTERSTITIAL NEPHRITIS, NOT SPCF ACUTE OR CHRONIC SNOMED Code(s): 90956244 (2) E coli bacteremia Current Visit: Yes Status: Acute Code(s): R78.81 - BACTEREMIA; B96.20 - UNSP ESCHERICHIA COLI THE CAUSE OF DISEASES CLASSD [facility] SNOMED Code(s): 294545368296 Plan: 1patient presented to hospital with sepsis in this patient who did have a fever elevated white count positive UA urinary symptoms considered likely pyelonephritis likely from metallic gram-negative pathogen currently no other obvious focus of infection in this patient chest x-ray reported negative abdominal soft on clinical examination 2-ultrasound of the kidney bladder did not show any evidence of any abscess or hydronephrosis 3-patient did have a positive blood culture with E. coli likely secondary to prior pyelonephritis, 4- patient has shown clinical improvement with Rocephin 2 g IV and plan is to finish therapy with oral Cipro 10 days prescription sent to the pharmacy Time with Patient: Less than 30
[2022-09-22 17:18] LABS: Glucose,Whole Blood 213 mg/dL (70-110)
[2022-09-22 20:32] LABS: Glucose,Whole Blood 178 mg/dL (70-110)
[2022-09-22] MEDS: IBUPROFEN 400 MG TAB PO PRN (20:56)
[2022-09-22] MEDS ORDERED: ATORVASTATIN 40 MG TAB PO SCH (21:00)
[2022-09-23 07:24] LABS: Glucose,Whole Blood 223 mg/dL (70-110)
[2022-09-23 08:34] VITALS: RESP 15
[2022-09-23] MEDS: INSULIN ASPART (NovoLOG) 100 UNIT/ML VIAL SQ SCH ×4 (08:36→13:34)
[2022-09-23] MEDS: INSULIN DETEMIR (LEVEMIR) 100 UNIT/ML SYR SQ SCH (08:37)
[2022-09-23 11:04] LABS: HCT 41.5 % (37.2-46.3); HGB 13.2 d/dL (12.0-15.0); MCH 28.4 pg (27.0-32.0); MCHC 31.8 d/dL (32.0-37.0); MCV 89.2 FL (80.0-97.0); Mean Platelet Volume 9.7 FL (9.5-12.2); NRBC Per 100 WBC 0 X 10*3/uL (0.00-0.01); Platelet Count 364 X 10*3/uL (140-440); RBC 4.65 X 10*6/uL (4.10-5.20); RDW 12.6 % (11.5-14.5)
[2022-09-23 11:34] LABS: ALT 59 U/L (8-44); AST 28 U/L (13-35); Alkaline Phosphatase 107 U/L (41-126); Blood Urea Nitrogen 8.2 mg/dL (9.0-27.0); Calcium 8.9 mg/dL (8.7-10.3); Carbon Dioxide 23.9 mmol/L (21.6-31.8); Chloride 103 mmol/L (96-109); Glucose 257 mg/dL (70-110); Potassium 4.3 mmol/L (3.5-5.5); Sodium 139 mmol/L (135-145); Total Bilirubin 0.3 mg/dL (0.3-1.2)
[2022-09-23 12:45] LABS: Glucose,Whole Blood 163 mg/dL (70-110)
--- NOTE | 2022-09-23 13:49 | P.DS ---
Providers Date of admission: 09/19/22 00:51 Expected date of discharge: 09/23/22 Attending physician: Kmi Quinn Consults: 09/19/22 09:03 Consult Physician Urgent Consulting Provider: Jaylin Escobar Consult Reason/Comments: UTI complicated Do you want consulting provider notified?: Yes Primary care physician: Physician Nonstaff Hospital Course: Discharge diagnoses; Acute pyelonephritis Sepsis Bacteremia [id number] diabetes mellitus, "poorly controlled, HbA1c level of 12.2 Hypomagnesemia Hyperglycemia Hyperlipidemia Hospital course; she is a 41-year-old lady with past medical history significant for diabetes mellitus who has not been taking her medication and does not follow with a primary doctor, currently visiting from [place] who presented to the ER because of overall feeling of being not well. Patient believes that she also has fever at home. Patient complaining of body aches and chills at home. Patient complaining of lethargy and weakness. Denies any shortness of breath. Denies any chest pain. Denies any orthopnea and PND. There is no complain of any swelling of feet. Patient states that she feels similar to what she felt like she was admitted last time with elevated blood sugar levels Because of this feeling of not feeling well, patient came to the ER Initial lab work done in the ER showed WBC 16.6, hemoglobin 14.4, platelet count 292, sodium 127, potassium 3.8, BUN 7, creatinine 0.38, magnesium 1.4 Chest x-ray done showed hypoventilation with vascular crowding, no pneumonia noticeable /. Patient seen and examined. Complaining of left-sided upper quadrant abdominal pain. Denies any nausea or vomiting /. Patient seen and examined. Blood cultures are positive for gram-negative bacilli. Blood sugars are still running in high 200s, adjust Lantus to 12 units twice a day and NovoLog to 8 units with meals. Patient fevers overnight 09/22. Patient seen and examined. States she feels better. Fevers have improved. States back pain has improved. Discussed with her regarding starting her on statins for her hypercholesterolemia 09/23. Patient discharged on oral Cipro by ID. PHYSICAL EXAMINATION: GENERAL: The patient is alert and oriented x3, not in any acute distress. Well developed, well nourished. HEENT: Pupils are round and equally reacting to light. EOMI. No scleral icterus. No conjunctival pallor. Normocephalic, atraumatic. No pharyngeal erythema. No thyromegaly. CARDIOVASCULAR: S1 and S2 present. No murmurs, rubs, or gallops. PULMONARY: Chest is clear to auscultation, no wheezing or crackles. ABDOMEN: Soft, nontender, nondistended, normoactive bowel sounds. No palpable organomegaly. MUSCULOSKELETAL: No joint swelling or deformity. EXTREMITIES: No cyanosis, clubbing, or pedal edema. NEUROLOGICAL: Gross neurological examination did not reveal any focal deficits. SKIN: No rashes. Patient Condition at Discharge: Fair Plan - Discharge Summary Discharge Rx Participant: Yes New Discharge Prescriptions: New Ciprofloxacin HCl [Cipro] 500 mg PO BID 10 Days #20 tab metFORMIN HCL [Glucophage] 500 mg PO BID #60 tab Atorvastatin [Lipitor] 40 mg PO HS #30 tab INSULIN ASPART (NovoLOG) [NovoLOG (formulary)] 4 unit SQ AC-TID #1 each lisinopriL [Zestril] 2.5 mg PO DAILY #30 tab Insulin Detemir (Levemir) [Levemir] 12 unit SQ BID@0700,2100 #1 each Discharge Medication List Ciprofloxacin HCl [Cipro] 500 mg PO BID 10 Days #20 tab 09/22/22 [Rx] Atorvastatin [Lipitor] 40 mg PO HS #30 tab 09/23/22 [Rx] INSULIN ASPART (NovoLOG) [NovoLOG (formulary)] 4 unit SQ AC-TID #1 each 09/23/22 [Rx] Insulin Detemir (Levemir) [Levemir] 12 unit SQ BID@0700,2100 #1 each 09/23/22 [Rx] lisinopriL [Zestril] 2.5 mg PO DAILY #30 tab 09/23/22 [Rx] metFORMIN HCL [Glucophage] 500 mg PO BID #60 tab 09/23/22 [Rx] Follow up Appointment(s)/Referral(s): [facility] [NON-STAFF] - 1 Week Nonstaff,Physician [Primary Care Provider] - 1-2 days Discharge Disposition: HOME SELF-CARE
[2022-09-23 14:19] VITALS: BP 156/88; PULSE 84; TEMP 98.6
--- NOTE | 2022-09-23 16:57 | P.PN ---
Subjective Progress Note Date: 09/23/22 Principal diagnosis: E coli UTI and bacteremia Patient is a 41-year-old female with a past medical history pertinent for diabetes mellitus noncompliant with her medication currently visiting from [place] presenting to the ER because of overall not feeling well and did have elevated blood sugar and possibly fever at home, patient was noticed to be febrile positivity with concern for pyelonephritis and blood cultures came back positive for E. coli. On today's evaluation that is 09/23/2022, the patient remains to be afebrile , patient denies having any chest pain shortness of breath or cough no nausea no vomiting abdominal pain or diarrhea Objective - Vital Signs Vital signs: Vital Signs Temp 98.1 F 09/23/22 07:40 Pulse 95 09/23/22 07:40 Resp 15 09/23/22 07:40 BP 128/83 09/23/22 07:40 Pulse Ox 94 L 09/23/22 07:40 FiO2 Intake & Output 09/22/22 09/23/22 09/23/22 18:59 06:59 18:59 Intake Total 1545 Balance 1545 Intake: Intake, IV Titration 1545 Amount Sodium Chloride 0.9% 1, 1495 000 ml @ 130 mls/hr IV . Q7H42M [facility] Rx#:[id number] cefTRIAXone 2 gm In 50 Sodium Chloride 0.9% 50 ml @ 100 mls/hr IVPB Q24HR [facility] Rx#:[id number] Other: Voiding Method Toilet Toilet Toilet # Voids 2 - Exam GENERAL DESCRIPTION: A middle-age female up in the chair in no distress RESPIRATORY SYSTEM: Unlabored breathing , decreased breath sounds at bases HEART: S1 S2 regular rate and rhythm , ABDOMEN: Soft , no tenderness EXTREMITIES: No edema feet - Labs CBC & Chem 7: 09/23/22 06:25 09/23/22 06:25 Labs: Abnormal Lab Results - Last 24 Hours (Table) 09/22/22 09/22/22 09/23/22 Range/Units 17:17 20:25 06:25 MCHC 31.8 L (32.0-37.0) d/dL Anion Gap (4.00-12.00) mmol/L BUN (9.0-27.0) mg/dL Creatinine (0.6-1.5) mg/dL Glucose (70-110) mg/dL POC Glucose (mg/dL) 213 H 178 H (70-110) mg/dL ALT (8-44) U/L Total Protein (6.2-8.2) d/dL Albumin (3.8-4.9) d/dL Albumin/Globulin Ratio (1.60-3.17) Ratio 09/23/22 09/23/22 09/23/22 Range/Units 06:25 07:23 12:44 MCHC (32.0-37.0) d/dL Anion Gap 12.10 H (4.00-12.00) mmol/L BUN 8.2 L (9.0-27.0) mg/dL Creatinine 0.5 L (0.6-1.5) mg/dL Glucose 257 H (70-110) mg/dL POC Glucose (mg/dL) 223 H 163 H (70-110) mg/dL ALT 59 H (8-44) U/L Total Protein 6.0 L (6.2-8.2) d/dL Albumin 3.0 L (3.8-4.9) d/dL Albumin/Globulin Ratio 1.00 L (1.60-3.17) Ratio Microbiology - Last 24 Hours (Table) 09/19/22 00:32 Blood Culture - Preliminary Blood Assessment and Plan (1) Pyelonephritis Status: Acute Code(s): N12 - TUBULO-INTERSTITIAL NEPHRITIS, NOT SPCF ACUTE OR CHRONIC SNOMED Code(s): 34933324 (2) E coli bacteremia Status: Acute Code(s): R78.81 - BACTEREMIA; B96.20 - UNSP ESCHERICHIA COLI THE CAUSE OF DISEASES CLASSD [facility] SNOMED Code(s): 680946185258 Plan: 1patient presented to hospital with sepsis in this patient who did have a fever elevated white count positive UA urinary symptoms considered likely pyelonephritis likely from metallic gram-negative pathogen currently no other obvious focus of infection in this patient chest x-ray reported negative abdominal soft on clinical examination 2-ultrasound of the kidney bladder did not show any evidence of any abscess or hydronephrosis 3-patient did have a positive blood culture with E. coli likely secondary to prior pyelonephritis, 4- patient has shown clinical improvement with plan is to finish therapy with oral Cipro 10 days and close outpatient follow-up Time with Patient: Less than 30
== END 2022-09-23 16:42 | disposition home or self-care (01) | DRG 872 ==
LOC: EC 23:31 → 5NMEDONC 09-19 00:51 → 6NMEDSUR 09-19 02:32 → 5NMEDONC 09-19 02:57
PROVIDERS: ADMIT Hospitalist; ATTEND Hospitalist
DX: A41.51 Sepsis due to Escherichia coli [E. coli] (principal); N10 Acute pyelonephritis; E11.65 Type 2 diabetes mellitus with hyperglycemia; E78.00 Pure hypercholesterolemia, unspecified; B96.20 Unspecified Escherichia coli [E. coli] as the cause of diseases classified elsewhere; E83.42 Hypomagnesemia; F17.210 Nicotine dependence, cigarettes, uncomplicated; T38.3X6A Underdosing of insulin and oral hypoglycemic [antidiabetic] drugs, initial encounter; T46.4X6A Underdosing of angiotensin-converting-enzyme inhibitors, initial encounter; Z20.822 Contact with and (suspected) exposure to COVID-19; Z91.128 Patient's intentional underdosing of medication regimen for other reason; Z91.199 Patient's noncompliance with other medical treatment and regimen due to unspecified reason; Z79.84 Long term (current) use of oral hypoglycemic drugs; Z79.899 Other long term (current) drug therapy; Z28.310 Unvaccinated for COVID-19
CPT/HCPCS: 36415; 71045; 76770; 80053; 80061; 80320; 81001; 82009; 82140; 83036; 83605; 83690; 83735; 83880; 84100; 84145; 84443; 84484; 85025; 85027; 85610; 85730; 86140; 87040; 87077; 87186; 87635; 93005; 94760; 96361; 96374; 96375; 99285; 99291